=== PATIENT | male | born 1975 | race Hispanic/Latino ===

== ENCOUNTER 2017-09-13 14:22 | Emergency (ER) | payer BC ==
[~2017-09-13] VITALS: Ht 167.6 cm; Wt 78.5 kg
[2017-09-13] MEDS ORDERED: SODIUM CHLORIDE 0.9% 1000ML 1,000 ML ONE (14:45)
[2017-09-13] MEDS ORDERED: SIMETHICONE80 MG PO (15:28)
[2017-09-13 15:40] VITALS: BP 150/79
== END 2017-09-13 15:55 | disposition home or self-care (01) ==
LOC: FSED 14:22
DX: R10.30 Lower abdominal pain, unspecified (principal); K59.00 Constipation, unspecified; K92.1 Melena
CPT/HCPCS: 80048; 80076; 81003; 82270; 85025; 99283; J7030